=== PATIENT | male | born 1985 | race Caucasian/White ===

== ENCOUNTER → 2022-09-12 10:56 | Outpatient (BNVA) | payer BC, SELFPAY | PROVIDERS: Family Provider Counselor Professional; Visit Provider Family Medicine | DX: Z13.220 Encounter for screening for lipoid disorders (principal); Z13.6 Encounter for screening for cardiovascular disorders; Z13.1 Encounter for screening for diabetes mellitus | CPT/HCPCS: 80053; 80061 ==

== ENCOUNTER → 2023-06-26 08:41 | Outpatient (BNVA) | payer BC, SELFPAY | PROVIDERS: Family Provider Counselor Professional; PCP Family Medicine; Visit Provider Family Medicine | DX: K21.9 Gastro-esophageal reflux disease without esophagitis (principal); J06.9 Acute upper respiratory infection, unspecified; J98.8 Other specified respiratory disorders; B97.89 Other viral agents as the cause of diseases classified elsewhere; H00.019 Hordeolum externum unspecified eye, unspecified eyelid; H10.10 Acute atopic conjunctivitis, unspecified eye; H00.011 Hordeolum externum right upper eyelid; H10.13 Acute atopic conjunctivitis, bilateral | CPT/HCPCS: 87400; 87426 ==

== ENCOUNTER → 2023-10-24 10:48 | Outpatient (BNVA) | payer BC, SELFPAY | PROVIDERS: Family Provider Counselor Professional; PCP Family Medicine; Visit Provider Family Medicine | DX: S67.196A Crushing injury of right little finger, initial encounter (principal); W23.0XXA Caught, crushed, jammed, or pinched between moving objects, initial encounter | CPT/HCPCS: 73130 ==

== ENCOUNTER → 2024-01-23 10:52 | Outpatient (BNVA) | payer BC, SELFPAY | PROVIDERS: Family Provider Counselor Professional; PCP Family Medicine; Visit Provider Family Medicine | DX: E78.5 Hyperlipidemia, unspecified (principal); Z13.1 Encounter for screening for diabetes mellitus | CPT/HCPCS: 80053; 80061 ==

== ENCOUNTER → 2024-04-24 11:26 | Outpatient (BNVA) | payer BC, OTHER, SELFPAY | PROVIDERS: Family Provider Counselor Professional; PCP Family Medicine; Visit Provider Family Medicine | DX: E83.52 Hypercalcemia (principal); R53.83 Other fatigue; R31.9 Hematuria, unspecified; R53.82 Chronic fatigue, unspecified | CPT/HCPCS: 80048; 81003; 82310; 82607; 82652; 83970; 84443; 85025 ==

== ENCOUNTER → 2024-05-29 14:03 | Outpatient (BNVA) | payer OTHER, SELFPAY | PROVIDERS: Family Provider Counselor Professional; PCP Family Medicine; Visit Provider Nurse Practitioner | DX: M25.561 Pain in right knee (principal); M25.571 Pain in right ankle and joints of right foot | CPT/HCPCS: 73562; 73610 ==